=== PATIENT | male | born 1985 | race Caucasian/White ===

== ENCOUNTER 2017-02-27 21:58 | Emergency (ER) | payer SELFPAY ==
--- NOTE | 2017-02-27 22:06 | PD ---
HPI Chief Complaint: Laceration/Skin Injury Time Seen by Provider: 22:05 Travel History International Travel<30 days: No Contact w/Intl Traveler<30days: No Traveled to known affect area: Keysha Lozano Feb 27, 2017 22:06
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
== END 2017-02-27 22:06 | disposition left against medical advice (07) ==
LOC: NED 21:58
DX: S51.812A Laceration without foreign body of left forearm, initial encounter (principal); Z53.21 Procedure and treatment not carried out due to patient leaving prior to being seen by health care provider; W45.8XXA Other foreign body or object entering through skin, initial encounter
CPT/HCPCS: 99281